=== PATIENT | male | born 1965 | race Caucasian/White ===

== ENCOUNTER 2019-01-29 11:01 | Inpatient (IN) | payer MEDICAID, OTHER ==
[~2019-01-29] VITALS: Ht 180.3 cm; Wt 99.3 kg
--- NOTE | 2019-01-29 11:01 | NUR ---
PT NAEL FROM HOME FOR CP; PT AAOX4, PT ON MONITOR, VSS, MD AT BEDSIDE FOR EVAL
[2019-01-29] MEDS ORDERED: NITROGLYCERIN 0.4 MG/TAB BOTTLE ONE (11:13)
[2019-01-29] MEDS ORDERED: MORPHINE SULFATE INJ 4 MG/ML DISP.SYRIN ONE (11:13)
[2019-01-29] MEDS ORDERED: ONDANSETRON HCL/PF 4 MG/2 ML VIAL ONE (11:13)
[2019-01-29 11:17] LABS: BASOPHILS % (AUTO) 0.3 % (0.0-2.0); EOSINOPHILS % (AUTO) 0.1 % (0.0-6.0); HEMATOCRIT 45 % (39-51); HEMOGLOBIN 14.7 g/dL (13.5-17.5); LYMPHOCYTES # (AUTO) 1.3 /CMM (0.8-4.8); LYMPHOCYTES % (AUTO) 11.5 % (20.0-44.0); MEAN CORPUSCULAR HGB CONC 33 g/dl (31.0-36.0); MEAN CORPUSCULAR VOLUME 87 fL (80-96); MONOCYTES # (AUTO) 0.6 /CMM (0.1-1.30); MONOCYTES % (AUTO) 5.7 % (2.0-12.0); NEUTROPHILS # (AUTO) 9.1 /CMM (1.8-8.9); NEUTROPHILS % (AUTO) 82.4 % (43.0-81.0); PLATELET COUNT (AUTO) 338 /CMM (150-450); RED BLOOD CELL COUNT(AUTO) 5.12 MIL/uL (4.5-6.0)
[2019-01-29 11:24] LABS: CALCIUM, SERUM 9.1 mg/dL (8.5-10.1); CARBON DIOXIDE 23 mmol/L (21-32); CHLORIDE 103 mmol/L (98-107); GLUCOSE 144 mg/dL (74-106); POTASSIUM 3.5 mmol/L (3.5-5.1); SODIUM SERUM 141 mmol/L (136-145); UREA NITROGEN, BLOOD 16 mg/dL (7-18)
[2019-01-29] MEDS ORDERED: MORPHINE SULFATE INJ 2 MG/ML DISP.SYRIN IV ONE (11:30)
[2019-01-29] MEDS ORDERED: NITROGLYCERIN 0.4 MG/TAB BOTTLE SL ONE (11:30)
[2019-01-29] MEDS ORDERED: ONDANSETRON HCL/PF - ER 4 MG/2 ML VIAL IV ONE (11:30)
[2019-01-29] MEDS ORDERED: IV NS 0.9% 500 ML BAG IV ONE (11:30)
[2019-01-29 11:38] LABS: ALANINE AMINOTRANSFERASE 35 U/L (12-78); ALBUMIN 4.2 g/dL (3.4-5.0); ALKALINE PHOSPHATASE 80 U/L (46-116); ASPARTATE AMINOTRANSFERASE 23 U/L (15-37); BILIRUBIN,DIRECT 0.2 mg/dL (0.0-0.2); BILIRUBIN,TOTAL 1.4 mg/dL (0.2-1.0); LIPASE 125 U/L (73-393); TOTAL PROTEIN, SERUM 8.1 g/dL (6.4-8.2)
--- NOTE | 2019-01-29 12:30 | NUR ---
RECEIVED REPORT FROM [facility]
--- NOTE | 2019-01-29 12:32 | NUR ---
report given the ally rn for kristopher pt will be transported to [address] [place] [address] via acls protocol
--- NOTE | 2019-01-29 12:45 | NUR ---
CREDIT REVIEW ANALYST NOTES RECEIVED PATIENT FROM ED A/O X4 ACLS PROTOCOL VIA GURNEY. AMBULATORY TO BED WITH SOME LIGHT HEADEDNESS AND NAUSEA. VITALS STABLE B/P 131/79 HR 83 O2 95% ON ROOM AIR RR 12 TEMP 98.2 ORAL. WEIGHT OF 246.5 LBS NO C/O SOB . PAIN /10 TO LOWER BACK MD AWARE. IVF # 18 GAUGE SALINE PATENT AND FLUSHING WELL WITH BLOOD RETURN. SKIN INTACT NO PHOTS TAKEN. BELONGINGS ACCOUNTED FOR. TELE MONITOR APPLIED SAFETY PRECAUTIONS IN PLCAE BED IN LOW LOCKED POSITION. ORIENTED PATIENT TO ROOM AND CALL SYSTEM. CALL LIGHT WITHIN REACH WILL CONT TO MONITOR ACCORDINGLY.
[2019-01-29] MEDS: HYDROCODONE/APAP 5/325MG 1 EACH TABLET PO PRN ×2 (13:21→18:21)
[2019-01-29] MEDS ORDERED: ONDANSETRON HCL/PF 4 MG/2 ML VIAL IVP PRN (13:30)
[2019-01-29] MEDS ORDERED: MAGNESIUM HYDROXIDE 30 ML UDC PO PRN (13:30)
[2019-01-29] MEDS ORDERED: MORPHINE SULFATE INJ 2 MG/ML DISP.SYRIN IV PRN (13:30)
[2019-01-29] MEDS ORDERED: Z GUARD REMEDY 2 OZ OINT TP PRN (13:30)
[2019-01-29] MEDS ORDERED: ZOLPIDEM TARTRATE 5 MG TABLET PO PRN (13:30)
[2019-01-29] MEDS ORDERED: MAG HYDROX/AL HYDROX/SIMETH 30 ML UDC PO PRN (13:30)
[2019-01-29 16:00] VITALS: BP 139/78
--- NOTE | 2019-01-29 19:29 | NUR ---
HEALTH AND NUTRITION SPECIALIST NOTES ENDORSED TO NOC. PATIENT HAVING EPISODES AT END OF SHIFT OF COLD AND CLAMMY.PAIN IN BILATERAL FEET AND FEELING WEAK. VITALS OBTAINED 136/76 HR 102 BS 136. NOC SHIFT REPORTED TO CALL .
--- NOTE | 2019-01-29 19:35 | NUR ---
MS RN NOTE PATIENT REPORT GIVEN BEDSIDE, PATIENT FAMILY AT BEDSIDE. PATIENT C/O NEVER PAIN "LIKE 1000 KNIVES" IN BOTH HIS FEET. PERIPHERAL PULSES STRONG BILATERALLY, NO MOTOR SENSORY DEFICITS NOTED. PATIENT C/O OF ANXIETY AND HR SLIGHTLY ELEVATED 106 ON THE MONITOR. CRIMINAL INVESTIGATIVE AGENT CHAU CONTACTED GABAPENTIN, ATIVAN AND EKG ORDERED. RN SAFETY PRECAUTIONS IN PLACE. RN WILL CONTINUE TO MONITOR FOR CHANGES.
[2019-01-29 20:00] VITALS: BP 171/106
[2019-01-29] MEDS ORDERED: GABAPENTIN 300 MG CAPSULE PO SCH ×2 (20:00)
[2019-01-29] MEDS: LORAZEPAM INJ 2 MG/ML VIAL IV PRN (20:06)
--- NOTE | 2019-01-29 20:11 | NUR ---
HAND FILER BALANCE WHEEL NOTE PATIENT EKG GIVEN PATIENT SINUS TACH
[2019-01-29] MEDS ORDERED: GABAPENTIN 300 MG CAPSULE PO ONE (20:30)
--- NOTE | 2019-01-29 20:32 | NUR ---
WAREHOUSE SHIPPING RECEIVING CLERK NOTE PATIENT GIVEN GABAPENTON FOR NERVE PAIN 02/11 Addendum: 01/29/19 at 2032 by KENIA PIEDRA RN Amended: Links added.
--- NOTE | 2019-01-29 22:53 | NUR ---
TECHNICAL SERVICES ANALYST NOTE CONSENT OBTAINED FOR STAT CT OF ABDOMEN/ PELVIS W CONTRAST
[2019-01-29] MEDS ORDERED: IOHEXOL-300 100 ML VIAL IV ONE (23:09)
[2019-01-29] MEDS ORDERED: CT SWABBABLE VALVE TRANS SET 1 EA INFUS.SET MC ONE (23:09)
[2019-01-29] MEDS ORDERED: IV NS 0.9% 250 ML IV ONE (23:10)
--- NOTE | 2019-01-29 23:27 | NUR ---
INSTRUMENT REPAIR SPECIALIST NOTE PATIENT TAKEN FOR CT
--- NOTE | 2019-01-29 23:43 | NUR ---
INDUSTRIAL SERVICER NOTE PATIENT RETURNED FROM CT
--- NOTE | 2019-01-29 23:45 | NUR ---
MANAGER PLANT NOTE REPORT GIVEN TO SETH FOR SAGE
--- NOTE | 2019-01-29 23:45 | NUR ---
MS RN OPENING NOTES RECEIVED BEDSIDE REPORT FROM KAYA AQUINO. PATIENT A/OX4. ABLE TO MAKE NEEDS KNOWN. ON TELE MONITOR SINUS TACHY WITH HR 111. ON OXYGEN 3L VIA NC, TOLERATING WELL. NO SOB NOTED. PATIENT C/O OF 10/10 PAIN AND STATES "LIKE 1000 KNIVES" IN BOTH HIS LEGS, WILL ADMINISTER PRN PAIN MEDICATION. DENIES CHEST PAIN AT THE MOMENT. PERIPHERAL PULSES STRONG BILATERALLY, NO MOTOR SENSORY DEFICITS NOTED. PER REPORT, DISTRIBUTION OPERATION SUPERVISOR CHAU AWARE OF PATIENT CURRENT STATUS. SAFETY PRECAUTIONS IN PLACE; BED LOCKED AND IN LOWEST POSITION, CALL LIGHT WITHIN REACH, SIDE RAILS UP X2, HOB ELEVATED. RN WILL CONTINUE TO MONITOR FOR CHANGES.
[2019-01-30] VITALS: BP 157/92
[2019-01-30] MEDS: HYDROMORPHONE 1 MG/1 ML DISP.SYRIN IV PRN ×4 (00:09→19:22)
[2019-01-30] MEDS: ACETAMINOPHEN 325 MG TABLET PO PRN ×2 (01:05→23:21)
[2019-01-30 03:21] LABS: THYROID STIMULATING HORMONE 2.404 uIU/mL (0.358-3.74)
[2019-01-30 04:00] VITALS: BP 135/77
[2019-01-30] MEDS: HYDROCODONE/APAP 5/325MG 1 EACH TABLET PO PRN (04:02)
[2019-01-30 06:43] LABS: HEMATOCRIT 46 % (39-51); HEMOGLOBIN 15.5 g/dL (13.5-17.5); LYMPHOCYTES # (AUTO) 0.5 /CMM (0.8-4.8); LYMPHOCYTES % (AUTO) 4.4 % (20.0-44.0); MEAN CORPUSCULAR HGB CONC 33 g/dl (31.0-36.0); MEAN CORPUSCULAR VOLUME 86 fL (80-96); NEUTROPHILS # (AUTO) 9.6 /CMM (1.8-8.9); NEUTROPHILS % (AUTO) 86.6 % (43.0-81.0); PLATELET COUNT (AUTO) 312 /CMM (150-450); RED BLOOD CELL COUNT(AUTO) 5.39 MIL/uL (4.5-6.0); WHITE BLOOD COUNT (AUTO) 11.1 K/uL (4.3-11.0)
[2019-01-30 06:44] LABS: ALBUMIN 4.2 g/dL (3.4-5.0); BILIRUBIN,DIRECT 0.2 mg/dL (0.0-0.2); BILIRUBIN,TOTAL 1.6 mg/dL (0.2-1.0); MAGNESIUM 1.9 mg/dL (1.8-2.4); POTASSIUM 3.9 mmol/L (3.5-5.1); TOTAL PROTEIN, SERUM 8.4 g/dL (6.4-8.2)
--- NOTE | 2019-01-30 07:00 | NUR ---
MS RN CLOSING NOTES PATIENT SLEEPING IN BED, BUT EASY TO AROUSE, A/OX4. ON TELE MONITOR SINUS TACHY WITH HR 103. ON OXYGEN 3L VIA NC, TOLERATING WELL. NO SOB NOTED. DENIES ANY PAIN AT THE MOMENT. SAFETY PRECAUTIONS IN PLACE; BED LOCKED AND IN LOWEST POSITION, CALL LIGHT WITHIN REACH, SIDE RAILS UP X2, HOB ELEVATED. ALL MD ORDERS ATTENDED, ALL NEEDS ANTICIPATED AND MET. ENDORSED TO AM RN FOR SAGE.
[2019-01-30 07:03] LABS: THYROID STIMULATING HORMONE 1.156 uIU/mL (0.358-3.74)
--- NOTE | 2019-01-30 07:39 | NUR ---
PIE CUTTER NOTES RECEIVED BEDSIDE REPORT. PATIENT SLEEPING ABLE TO AROUSE WITH VOICE AND TOUCH. A/O X4 NO SIGNS OR SYMPTOMS OF RESPIRATORY DISTRESS ON 2 LTRS NASAL CANNULA. NO C/O PAIN AT THIS TIME. LAST DILAUDID GIVEN AT 0445.SINUS TACHY ON MONITOR 103 NO C/O CHEST PAIN. AMBULATORY IN ROOM . SKIN INTACT . IV # 18 GAUGE SALINE LOCK TO LAC. SAFETY PRECAUTIONS IN PLACE BED IN LOW POSITION CALL LIGHT WITHIN REACH WILL CONT TO MONITOR
[2019-01-30 08:00] VITALS: BP 157/80
[2019-01-30 08:41] LABS: BAND % (MANUAL) 7 % (0.0-5.0); LYMPHOCYTES % (MANUAL) 3 % (16-48); MONOCYTES % (MANUAL) 13 % (0-11.0); NEUTROPHILS % (MANUAL) 77 (42-76)
[2019-01-30] MEDS ORDERED: NITROGLYCERIN 0.4 MG/TAB BOTTLE SL ONE (11:00)
[2019-01-30] MEDS ORDERED: METOPROLOL TARTRATE INJ 5 MG/5 ML AMPUL IVP PRN (11:00)
[2019-01-30] MEDS ORDERED: IV NS 0.9% 500 ML IV PRN (11:00)
[2019-01-30] MEDS: LORAZEPAM INJ 2 MG/ML VIAL IV PRN (11:11)
--- NOTE | 2019-01-30 11:15 | NUR ---
PT LEFT FOR CT ACLS PROTOCOL
[2019-01-30] MEDS ORDERED: CT SWABBABLE VALVE TRANS SET 1 EA INFUS.SET MC ONE (11:23)
[2019-01-30] MEDS ORDERED: IOHEXOL-350 100 ML VIAL IV ONE (11:23)
[2019-01-30] MEDS ORDERED: IV NS 0.9% 250 ML IV ONE (11:23)
[2019-01-30] MEDS ORDERED: METOPROLOL TARTRATE INJ 5 MG/5 ML AMPUL ONE ×2 (11:27→12:05)
[2019-01-30 12:00] VITALS: BP 129/78
[2019-01-30] MEDS: METOPROLOL TARTRATE 50 MG TABLET PO SCH ×3 (12:00→23:21)
--- NOTE | 2019-01-30 12:46 | NUR ---
PT RETURNED FROM CT SCAN
--- NOTE | 2019-01-30 12:54 | NUR ---
LOPRESSOR 5 MG HELD D/T PATIENT GIVEN LOPRESSOR IVP DURING PROCEDURE. B/P 129/79 HR 86
[2019-01-30 16:00] VITALS: BP_SYST 139; BP_SYST 159; BP_DIAS 73; BP_DIAS 77
[2019-01-30] MEDS ORDERED: LORAZEPAM INJ 2 MG/ML VIAL IV PRN (18:00)
--- NOTE | 2019-01-30 19:29 | NUR ---
NO SIGNIFICANT CHANGES THROUGHOUT SHIFT ENDORSED TO NOC
--- NOTE | 2019-01-30 19:35 | NUR ---
PUBLIC ACCOUNTANT NOTE: RECEIVED PT ON BED ALERT AND ORIENTED X3. ABLE TO MAKE NEEDS KNOWN. NO APPARENT DISTRESS NOTED. COMPLAINED OF PAIN. PRN DILAUDID GIVEN ORDERED BY DAY SHIFT RN. ON TELE MONITOR SINUS RHYTHM HR 97BPM. ON ROOM AIR, BREATHING EVEN AND UNLABORED WITH NORMAL RESPIRATIONS. KEPT CLEAN, DRY AND COMFORTABLE. CALL LIGHT PLACED WITHIN REACH. SIDE RAILS UP X2. BED ALARM ON. BED LOCKED AND IN LOWEST POSITION. WILL CONTINUE TO MONITOR PT.
[2019-01-30 20:00] VITALS: BP 152/98
[2019-01-31] VITALS: BP_SYST 143; BP_SYST 147; BP_DIAS 84; BP_DIAS 90
[2019-01-31] MEDS: HYDROMORPHONE 1 MG/1 ML DISP.SYRIN IV PRN ×3 (00:22→09:44)
[2019-01-31 04:00] VITALS: BP 129/97
[2019-01-31] MEDS: METOPROLOL TARTRATE 50 MG TABLET PO SCH ×2 (05:13→12:20)
[2019-01-31 06:39] LABS: BASOPHILS % (AUTO) 0.1 % (0.0-2.0); EOSINOPHILS % (AUTO) 1.6 % (0.0-6.0); HEMATOCRIT 42 % (39-51); HEMOGLOBIN 14.1 g/dL (13.5-17.5); LYMPHOCYTES # (AUTO) 1.1 /CMM (0.8-4.8); LYMPHOCYTES % (AUTO) 14.5 % (20.0-44.0); MEAN CORPUSCULAR HGB CONC 34 g/dl (31.0-36.0); MEAN CORPUSCULAR VOLUME 86 fL (80-96); MONOCYTES % (AUTO) 13.1 % (2.0-12.0); NEUTROPHILS # (AUTO) 5.6 /CMM (1.8-8.9); NEUTROPHILS % (AUTO) 70.7 % (43.0-81.0); PLATELET COUNT (AUTO) 260 /CMM (150-450); RED BLOOD CELL COUNT(AUTO) 4.88 MIL/uL (4.5-6.0); WHITE BLOOD COUNT (AUTO) 7.9 K/uL (4.3-11.0)
--- NOTE | 2019-01-31 06:48 | NUR ---
QUALITY TECH NOTE: NO CHANGES NOTED THROUGHOUT THE SHIFT. NO APPARENT DISTRESS NOTED. DENIES PAIN AND DISCOMFORT AT THIS TIME. ON 2LPM NASAL CANNULA, NO SOB NOTED. ON TELE MONITOR SINUS RHYTHM 95BPM. IV ON LEFT ANTECUBITAL #18 INTACT AND PATENT, FLUSHING WELL. CALL LIGHT PLACE WITHIN REACH. KEPT CLEAN, DRY AND COMFORTABLE. SAFETY AND FALL PRECAUTIONS OBSERVED AND MAINTAINED. WILL ENDORSE TO DAY SHIFT RN FOR CONTINUITY OF CARE.
[2019-01-31 07:07] LABS: ALBUMIN 3.6 g/dL (3.4-5.0); BILIRUBIN,DIRECT 0.3 mg/dL (0.0-0.2); BILIRUBIN,TOTAL 2.3 mg/dL (0.2-1.0); CALCIUM, SERUM 8.7 mg/dL (8.5-10.1); CREATININE 0.7 mg/dL (0.6-1.3); POTASSIUM 3.8 mmol/L (3.5-5.1); TOTAL PROTEIN, SERUM 7.6 g/dL (6.4-8.2)
--- NOTE | 2019-01-31 07:37 | NUR ---
UNIFORM DESIGNER OPENING NOTES RECEIVED PATIENT ASLEEP IN BED. ABLE TO AROUSE WITH VOICE AND TOUCH. A/OX4. ON 2 LTRS NASAL CANNULA NO SIGNS OR SYMPTOMS OF RESPIRATORY DISTRESS C/O STOMACH PAIN WITH NO N/V/D. LAST DILAUDID GIVEN @ 0513. AMBULATORY IN ROOM. IV SALINE LOCK TO LAC # 18 GAUGE PATENT. SAFETY PRECAUTIONS IN PLACE BED IN LOW AND LOCKED SAFETY PRECAUTIONS IN PLACE CALL LIGHT WITHIN REACH WILL CONT TO MONITOR ACCORDINGLY
--- NOTE | 2019-01-31 07:46 | NUR ---
KAYA CANDELARIO OPENING NOTES RECEIVED BEDSIDE REPORT. PATIENT A/O X4 SITTING IN CHAIR. CUBAN SPEAKING. NO SIGNS OR SYMPTOMS OF RESPIRATORY DISTRESS ON 2 LTRS NASAL CANNULA. NO C/O PAIN AT THIS TIME ONLY OF ITCHING. WILL F/U WITH . AMBULATORY IN ROOM IV TO L HAND # 22 SALINE LOCK AT THIS TIME ORDER FOR NS @ 75 ML/HR. AFIB ON MONITOR 130'S. SAFETY PRECAUTIONS IN PLACE BED IN LOW POSITION CALL LIGHT WITHIN REACH WILL CONT TO MONITOR ACCORDINGLY Addendum: 01/31/19 at 1003 by OLY CARLSON RN CHARTED ON WRONG PATIENT
[2019-01-31 08:00] VITALS: BP_SYST 129; BP_SYST 136; BP_DIAS 54; BP_DIAS 86
--- NOTE | 2019-01-31 10:01 | NUR ---
DILAUDID GIVEN FOR UPPER STOMACH PAIN
[2019-01-31 12:00] VITALS: BP 158/100
[2019-01-31] MEDS ORDERED: SIMETHICONE 80 MG TAB.CHEW PO PRN (13:30)
[2019-01-31] MEDS ORDERED: PANTOPRAZOLE 40 MG TABLET.DR PO SCH (13:30)
--- NOTE | 2019-01-31 15:30 | NUR ---
RN NOTES PER CHARGE NURSE, SHIFT STACKER TALK TO PATIENT WHO IS NOW OKAY WITH DISCHARGE BUT WONT SIGN DISCHARGE PAPER. DISCHARGE FACILITATED PAPERS. WENT TO BEDSIDE TO EXPLAIN DISCHARGE PAPERS BUT PATIENT REFUSED "I ALREADY SAID I WONT SIGN TO ANY OF THE PAPER WORKS" PATIENT REMOVED IV HIMSELF. NO ID BAND NOTED ON BOTH ARMS. PATIENT OFFERED WHEELCHAIR BUT CLAIM TO LEAVE UNIT IN 10 MINS. Addendum: 01/31/19 at 1819 by AVNI PACE RN TIME ERROR. SHOULD HAVE BEEN [phone]
[2019-01-31 16:00] VITALS: BP 158/100
--- NOTE | 2019-01-31 16:00 | NUR ---
RN NOTES WENT TO BEDSIDE TO INTRODUCE SELF TO PATIENT SINCE REPORT FROM KAYA ALDRIDGE. PATIENT WITH COMPLAINTS OF PAIN AT THIS TIME, SCALE AT 7/10 ON THE LOWER QUADRANTS OF THE ABDOMEN. ABDOMEN SOFT AND NOT DISTENDED. DENIES BM SINCE TWO DAYS AGO AND CLAIMED TO HAVE URINATED 4-6 TIMES SINCE THE MORNING. PATIENT INFORMED THAT HE HAS BEEN DISCHARGED BY THE MD, BUT STILL PAGED MD TO MADE AWARE
--- NOTE | 2019-01-31 16:00 | NUR ---
HAND OFF REPORT GIVEN TO AVNI
--- NOTE | 2019-01-31 16:15 | NUR ---
RN NOTES SPOKE TO DR. PIERCE, WHO VERBALIZED THAT " I CANNOT DO ANYTHING ANYMORE. ALL DIAGNOSTICS AND WORK UPS ARE ALL CLEAR. I AM ABIMBOLA WITH HIM STAYING FOR ANOTHER DAY BUT HE SHOULD KNOW THAT HIS INSURANCE HAS BEEN USED AND THAT A BILL MAY COME" ASKED MD IF OKAY DISCHARGING WITH ABDOMINAL PAIN, HE SAID OKAY. ASKED MD IF OKAY TO GIVE SUPPOSITORY, PER MD "OKAY TO GIVE SUPPOSITORY BUT YOU SHOULD INFORMED HIM THAT IT MIGHT PROBABLY NOT WORK TILL HE GETS HOME." WENT TO BEDSIDE TO INFORMED THE PATIENT BUT PATIENT KEEPS ON ASKING ABOUT EGD THAT WAS DISCUSSED BY ROGER WHITLEY NP. PAGED THE LATER THEN TO INQUIRE. PER ROGER, NO NEED OF EGD AT THIS TIME. WHICH WAS RELAYED TO THE PATIENT
--- NOTE | 2019-01-31 16:20 | NUR ---
RN NOTES INFORMED CHARGE NURSE ABOUT THE SITUATION WHO ASKED ME TO INFORMED CASE MANAGEMENT.
--- NOTE | 2019-01-31 18:00 | NUR ---
RN NOTES CALLED SECURITY SINCE PATIENT HAS NOT LEFT YET.
--- NOTE | 2019-01-31 18:20 | NUR ---
RN NOTES PATIENT LEFT THE UNIT AMBULATORY ACCOMPANIED BY THE BROTHER
== END 2019-01-31 18:35 | disposition home or self-care (01) | DRG 384 ==
LOC: ER 11:03 → TELE1 12:02 → MEDSG1 01-31 12:32
PROVIDERS: ADMIT Student in an Organized Health Care Education/Training Program; ATTEND Family Medicine
DX: K27.9 Peptic ulcer, site unspecified, unspecified as acute or chronic, without hemorrhage or perforation (principal); K21.9 Gastro-esophageal reflux disease without esophagitis; R07.9 Chest pain, unspecified; E80.6 Other disorders of bilirubin metabolism; M54.9 Dorsalgia, unspecified; E78.5 Hyperlipidemia, unspecified; K76.0 Fatty (change of) liver, not elsewhere classified; R16.0 Hepatomegaly, not elsewhere classified; K57.90 Diverticulosis of intestine, part unspecified, without perforation or abscess without bleeding; R10.9 Unspecified abdominal pain
CPT/HCPCS: 36415; 71045-TC; 71260-TC; 75574; 76700-TC; 80048-TC; 80061-TC; 80076-TC; 82962-TC; 83690-TC; 83735-TC; 83880; 84100-TC; 84439-TC; 84443-TC; 84484-TC; 85025-TC; 87081-TC; 93307-TC; 97116-TC; 97530-TC; G0378; J1170; J2060; J2270; J2405; J3490; J7040; J7050; Q9967

== ENCOUNTER 2019-11-04 23:33 | Emergency (ER) | payer OTHER ==
[~2019-11-04] VITALS: Ht 180.3 cm; Wt 98.4 kg
--- NOTE | 2019-11-04 23:37 | NUR ---
PT CAME TO THE ED C/O HIP PAIN S/P GLF. -KO. +SWELLING AND BRUISING ON LEFT UPPER LEG. SKIN TEAR ON THE ELBOW NOTED. PT CONNECTED TO THE MONITOR AND POX. AWAITING FOR MD ALDANA
[2019-11-05] MEDS ORDERED: HYDROCODONE/APAP 10/325MG 1 EA TABLET PO ONE
[2019-11-05] MEDS ORDERED: ONDANSETRON 4 MG TAB.RAPDIS SL ONE
[2019-11-05] MEDS ORDERED: HYDROCODONE/APAP 10/325MG 1 EA TABLET ONE (00:15)
[2019-11-05] MEDS ORDERED: ONDANSETRON 4 MG TAB.RAPDIS ONE (00:16)
[2019-11-05] MEDS ORDERED: CEPHALEXIN MONOHYDRATE 500 MG CAPSULE PO ONE ×2 (00:16)
[2019-11-05] MEDS ORDERED: TDAP [DIPH/PERTUSSIS/TET] 0.5 ML VIAL IM ONE ×2 (00:17)
--- NOTE | 2019-11-05 01:12 | NUR ---
EMT AT BEDSIDE FOR SHOULDER SLING
--- NOTE | 2019-11-05 01:14 | NUR ---
Prescriptions given to patient and explained regarding not operating machinery while taking prescriptions narcotics.
--- NOTE | 2019-11-05 01:14 | NUR ---
Patient discharged to home in stable condition. Written and verbal after care instructions given. Patient verbalizes understanding of instruction.
[2019-11-05 01:15] VITALS: BP 146/72
== END 2019-11-05 01:15 | disposition home or self-care (01) ==
LOC: ER 23:41
DX: S70.01XA Contusion of right hip, initial encounter (principal); S70.11XA Contusion of right thigh, initial encounter; S50.311A Abrasion of right elbow, initial encounter; W11.XXXA Fall on and from ladder, initial encounter; Y93.89 Activity, other specified; Y92.89 Other specified places as the place of occurrence of the external cause; Y99.8 Other external cause status
CPT/HCPCS: 73080; 73502; 90471; 90715; 99284; Q0162